=== PATIENT | female | born 1995 | race American Indian/Alaskan Native ===

== ENCOUNTER 2018-05-04 20:40 | Emergency (ER) | payer BC, MEDICAID ==
[2018-05-04 20:48] VITALS: TEMP 98.9
[2018-05-04 21:26] LABS: BASO % 0.2 % (0.0-2.0); EOS # 0.1 K/uL (0.0-0.7); EOS % 0.5 % (0.0-4.0); HEMOGLOBIN 12.2 g/dL (11.0-16.0); LYMPH # 2.7 K/uL (1.0-4.3); LYMPH % 28.2 % (20.0-40.0); MEAN CELL VOLUME 87.9 fL (81.0-99.0); MEAN CORPUSCULAR HEMOGLOBIN 28.8 pg (27.0-31.0); MEAN CORPUSCULAR HGB CONC 32.8 g/dL (33.0-37.0); MEAN PLATELET VOLUME 8.7 fL (7.2-11.7); MONO # 0.8 K/uL (0.0-0.8); MONO % 8.2 % (0.0-10.0); NEUT # 6.1 K/uL (1.8-7.0); NEUT % 62.9 % (50.0-75.0); RBC 4.23 Mil/uL (3.80-5.20); RED CELL DISTRIBUTION WIDTH 14.7 % (11.5-14.5); WHITE BLOOD COUNT 9.6 K/uL (4.8-10.8)
[2018-05-04 21:38] LABS: BLOOD UREA NITROGEN 20 mg/dL (7-17); CALCIUM 9.4 mg/dl (8.6-10.4); GFR AFRICAN-AMERICAN > 60; GFR NON-AFRICAN AMERICAN > 60
[2018-05-04] MEDS ORDERED: Lactated Ringer's 1,000 ML IVB ONE (21:52)
[2018-05-04 22:54] LABS: BARBITURATES, UR NEGATIVE (NEGATIVE); BENZODIAZEPINES, UR NEGATIVE (NEGATIVE); OPIATES, UR NEGATIVE (NEGATIVE); PHENCYCLIDINE, UR NEGATIVE (NEGATIVE)
[2018-05-04 23:18] LABS: FREE T4 0.85 ng/dL (0.78-2.19)
[2018-05-04 23:41] VITALS: BP 116/80; PULSE 66; RESP 12
[2018-05-04 23:42] VITALS: O2SAT 98
--- NOTE | 2018-05-04 23:42 | C.PDOC ---
History Of Present Illness Pt c/o multiple nonspecific symptoms, including, feeling of pressure in anterior neck, chest pain that has resolved, headache that has resolved.... Time Seen by Provider: 05/04/18 21:17 Chief Complaint (Nursing): Medical Clearance History Per: Patient Onset/Duration Of Symptoms: Days (1) Current Symptoms Are (Timing): Still Present Severity: Moderate Additional History Per: Prior Records Past Medical History Reviewed: Historical Data, Nursing Documentation, Vital Signs Vital Signs: Last Vital Signs Temp 98.9 F 05/04/18 20:45 Pulse 78 05/04/18 20:45 Resp 16 05/04/18 20:45 BP 136/64 05/04/18 20:45 Pulse Ox 98 05/04/18 20:45 - Medical History PMH: No Chronic Diseases Surgical History: No Surg Hx Family History: States: Unknown Family Hx - Social History Hx Tobacco Use: No Hx Alcohol Use: No Hx Substance Use: No Review Of Systems Except As Marked, All Systems Reviewed And Found Negative. Constitutional: Negative for: Fever Cardiovascular: Positive for: Chest Pain Respiratory: Negative for: Hemoptysis Gastrointestinal: Positive for: Abdominal Pain. Negative for: Vomiting Musculoskeletal: Positive for: Neck Pain. Negative for: Back Pain, Leg Pain Neurological: Positive for: Headache. Negative for: Weakness, Numbness, Seizures, Altered Mental Status Physical Exam - Physical Exam Appears: Non-toxic, No Acute Distress Skin: Normal Color, Warm, Dry, No Rash Head: Atraumatic, Normacephalic Eye(s): bilateral: Normal Inspection, PERRL, EOMI Oral Mucosa: Moist, No Drooling, No Trismus Throat: Normal Neck: Normal ROM, Supple, Other (Thyroid gland enlargement/fullness) Chest: Symmetrical Cardiovascular: Rhythm Regular Respiratory: Normal Breath Sounds, No Accessory Muscle Use Gastrointestinal/Abdominal: Soft, No Tenderness Back: No CVA Tenderness Extremity: Normal ROM, No Pedal Edema, No Calf Tenderness Neurological/Psych: Oriented x3, Normal Speech, Normal Motor, Normal Sensation ED Course And Treatment - Laboratory Results Result Diagrams: 05/04/18 21:22 05/04/18 21:22 Lab Interpretation: No Acute Changes Urine POC: Negative ECG: Interpreted By Me, Viewed By Me ECG Rhythm: Sinus Rhythm, Nonspecific Changes ECG Interpretation: No Acute Changes Rate From EC O2 Sat by Pulse Oximetry: 98 Pulse Ox Interpretation: Normal - Radiology CXR: Interpreted by Me, Viewed By Me CXR Interpretation: Yes: No Acute Disease Progress - Interventions Interventions:: Observation, Intravenous fluid - Data Reviewed Data Reviewed: Lab, Diagnostic imaging, EKG, Old records - Patient Status Patient status: Mostly improved - Continuity of Care Discussed patient case with:: Patient, ED Nurse - Patient Plan Patient Plan: Discharge, F/U with PCP Medical Decision Making Medical Decision Making: PERC rule negative. Disposition Counseled Patient/Family Regarding: Studies Performed, Diagnosis, Need For Followup - Disposition Disposition: HOME/ ROUTINE Disposition Time: 23:42 Condition: STABLE Additional Instructions: Follow up with your doctor for further evaluation of your thyroid gland, including ultrasound. Return to the ER if you develop shortness of breath, palpitations, worsening of symptoms or if you have any other concerns. Instructions: Chest Pain (DC) Forms: bookjam (Citizen [place]) - Clinical Impression Clinical Impression: Enlarged thyroid, Chest pain
--- NOTE | 2018-05-05 15:21 | RAD ---
Date of service: 05/04/2018 HISTORY: Pain COMPARISON: No prior. FINDINGS: LUNGS: No active pulmonary disease. PLEURA: No significant pleural effusion identified, no pneumothorax apparent. CARDIOVASCULAR: Normal. OSSEOUS STRUCTURES: No significant abnormalities. VISUALIZED UPPER ABDOMEN: Normal. OTHER FINDINGS: None. IMPRESSION: No active disease.
== END 2018-05-04 23:54 | disposition home or self-care (01) ==
LOC: C.ER 20:40
DX: R07.9 Chest pain, unspecified (principal); E04.9 Nontoxic goiter, unspecified
CPT/HCPCS: 71045; 80048; 80324; 80345; 80346; 80349; 80353; 80358; 80361; 83992; 84439; 84443; 84484; 84703; 85025; 99284; J7120